=== PATIENT | female | born 1985 | race Caucasian/White ===

== ENCOUNTER 2017-05-02 10:27 | Outpatient (CLI) | payer OTHER | END 2017-05-02 10:28 | disposition home or self-care (01) | LOC: LAB 10:27 | DX: Z80.49 Family history of malignant neoplasm of other genital organs (principal); D51.1 Vitamin B12 deficiency anemia due to selective vitamin B12 malabsorption with proteinuria; D51.0 Vitamin B12 deficiency anemia due to intrinsic factor deficiency; C53.9 Malignant neoplasm of cervix uteri, unspecified; Z85.41 Personal history of malignant neoplasm of cervix uteri; D51.3 Other dietary vitamin B12 deficiency anemia; K29.40 Chronic atrophic gastritis without bleeding; E06.3 Autoimmune thyroiditis; D50.8 Other iron deficiency anemias; D51.8 Other vitamin B12 deficiency anemias; I10 Essential (primary) hypertension; E03.8 Other specified hypothyroidism; K90.89 Other intestinal malabsorption; K91.2 Postsurgical malabsorption, not elsewhere classified ==

== ENCOUNTER → 2017-11-08 09:30 | Outpatient (CLI) | payer OTHER | END | disposition home or self-care (01) | LOC: LAB 09:30 | DX: Z80.49 Family history of malignant neoplasm of other genital organs (principal); D51.1 Vitamin B12 deficiency anemia due to selective vitamin B12 malabsorption with proteinuria; D51.0 Vitamin B12 deficiency anemia due to intrinsic factor deficiency; C53.9 Malignant neoplasm of cervix uteri, unspecified; Z85.41 Personal history of malignant neoplasm of cervix uteri; D51.3 Other dietary vitamin B12 deficiency anemia; K29.40 Chronic atrophic gastritis without bleeding; E06.3 Autoimmune thyroiditis; K91.2 Postsurgical malabsorption, not elsewhere classified; D50.8 Other iron deficiency anemias; D51.8 Other vitamin B12 deficiency anemias; I10 Essential (primary) hypertension; E55.9 Vitamin D deficiency, unspecified; K90.89 Other intestinal malabsorption; R97.0 Elevated carcinoembryonic antigen [CEA]; R97.8 Other abnormal tumor markers ==

== ENCOUNTER 2017-12-22 09:35 | Outpatient (CLI) | payer OTHER | END 2017-12-22 09:40 | disposition home or self-care (01) | LOC: LAB 09:35 | DX: Z80.49 Family history of malignant neoplasm of other genital organs (principal); D51.1 Vitamin B12 deficiency anemia due to selective vitamin B12 malabsorption with proteinuria; D51.0 Vitamin B12 deficiency anemia due to intrinsic factor deficiency; C53.8 Malignant neoplasm of overlapping sites of cervix uteri; Z85.41 Personal history of malignant neoplasm of cervix uteri; D51.3 Other dietary vitamin B12 deficiency anemia; K29.40 Chronic atrophic gastritis without bleeding; E06.3 Autoimmune thyroiditis; K91.2 Postsurgical malabsorption, not elsewhere classified; R10.10 Upper abdominal pain, unspecified; N39.0 Urinary tract infection, site not specified ==

== ENCOUNTER 2017-12-22 10:28 | Outpatient (CLI) | payer OTHER | END 2017-12-22 10:38 | disposition home or self-care (01) | LOC: RAD 10:28 → MAMO-SONO 11:15 | DX: Z80.49 Family history of malignant neoplasm of other genital organs (principal); D51.1 Vitamin B12 deficiency anemia due to selective vitamin B12 malabsorption with proteinuria; D51.0 Vitamin B12 deficiency anemia due to intrinsic factor deficiency; C53.8 Malignant neoplasm of overlapping sites of cervix uteri; Z85.41 Personal history of malignant neoplasm of cervix uteri; D51.3 Other dietary vitamin B12 deficiency anemia; K29.40 Chronic atrophic gastritis without bleeding; E06.3 Autoimmune thyroiditis; K91.2 Postsurgical malabsorption, not elsewhere classified ==

== ENCOUNTER 2018-03-13 10:46 | Outpatient (CLI) | payer OTHER | END 2018-03-13 11:30 | disposition home or self-care (01) | LOC: LAB 10:46 | DX: Z80.49 Family history of malignant neoplasm of other genital organs (principal); D51.1 Vitamin B12 deficiency anemia due to selective vitamin B12 malabsorption with proteinuria; D51.0 Vitamin B12 deficiency anemia due to intrinsic factor deficiency; C53.9 Malignant neoplasm of cervix uteri, unspecified; Z85.41 Personal history of malignant neoplasm of cervix uteri; D51.3 Other dietary vitamin B12 deficiency anemia; K29.40 Chronic atrophic gastritis without bleeding; E06.3 Autoimmune thyroiditis; K91.2 Postsurgical malabsorption, not elsewhere classified; R97.0 Elevated carcinoembryonic antigen [CEA]; D50.8 Other iron deficiency anemias; D51.8 Other vitamin B12 deficiency anemias; I10 Essential (primary) hypertension ==

== ENCOUNTER 2018-10-22 09:14 | Outpatient (CLI) | payer OTHER | END 2018-10-22 09:20 | disposition home or self-care (01) | LOC: LAB 09:14 | DX: D51.1 Vitamin B12 deficiency anemia due to selective vitamin B12 malabsorption with proteinuria (principal); Z80.49 Family history of malignant neoplasm of other genital organs; D51.0 Vitamin B12 deficiency anemia due to intrinsic factor deficiency; C53.9 Malignant neoplasm of cervix uteri, unspecified; D51.3 Other dietary vitamin B12 deficiency anemia; K29.40 Chronic atrophic gastritis without bleeding; E06.3 Autoimmune thyroiditis; K91.2 Postsurgical malabsorption, not elsewhere classified; R10.10 Upper abdominal pain, unspecified; M62.838 Other muscle spasm; D50.8 Other iron deficiency anemias; D51.8 Other vitamin B12 deficiency anemias; I10 Essential (primary) hypertension; E03.8 Other specified hypothyroidism; R97.0 Elevated carcinoembryonic antigen [CEA]; R97.8 Other abnormal tumor markers ==

== ENCOUNTER 2019-04-24 09:24 | Outpatient (CLI) | payer OTHER | END 2019-04-24 09:39 | disposition home or self-care (01) | LOC: LAB 09:24 | DX: D50.8 Other iron deficiency anemias (principal); I10 Essential (primary) hypertension; Z80.49 Family history of malignant neoplasm of other genital organs; D51.1 Vitamin B12 deficiency anemia due to selective vitamin B12 malabsorption with proteinuria; D51.0 Vitamin B12 deficiency anemia due to intrinsic factor deficiency; C53.9 Malignant neoplasm of cervix uteri, unspecified; Z85.41 Personal history of malignant neoplasm of cervix uteri; D51.3 Other dietary vitamin B12 deficiency anemia; K29.40 Chronic atrophic gastritis without bleeding; E06.3 Autoimmune thyroiditis; K91.2 Postsurgical malabsorption, not elsewhere classified; R10.10 Upper abdominal pain, unspecified; M62.838 Other muscle spasm; D51.8 Other vitamin B12 deficiency anemias; E03.8 Other specified hypothyroidism; R97.0 Elevated carcinoembryonic antigen [CEA]; R97.8 Other abnormal tumor markers; E55.9 Vitamin D deficiency, unspecified ==